=== PATIENT | female | born 1995 | race Two or more races ===

== ENCOUNTER 2017-10-12 12:37 | Emergency (ER) | payer BC ==
--- NOTE | 2017-10-12 13:00 | Emergency Department Record ---
History of Present Illness - General Chief complaint: Eye Problem Stated complaint: LT EYE IRRATATION Time Seen by Provider: 10/12/17 12:46 Source: Patient Mode of Arrival: Ambulatory Limitations: No limitations - History of Present Illness Initial comments: The patient is here due to a one day hx of L eye irritation. She denies any eye pain or visual changes and does not wear contacts. She also has not had any cough, cold or nasal drainage. The L eye has had some colored drainage in the morning and a little eyelid swelling which is improved now. chief complaint: Eye redness Onset/Timin -: Days(s) Onset Description: Gradual Location: Left eye Eye Symptoms: Redness Treatments Prior to Arrival: OTC eye drops - Related Data Visual acuity (L) = 20/: 70 Visual acuity (R) = 20/: 70 Home Medications Medication Instructions Recorded Confirmed Last Taken No122/Iron/Folic Acid 1 each PO DAILY 10/12/17 10/12/17 10/11/17 [ Multi Tablet] Previous Rx's Medication Instructions Recorded Erythromycin Base [Erythromycin 1 apply AFFEYE QID #1 tube 10/12/17 OPTH Ointment] Allergies Allergy/AdvReac Type Severity Reaction Status Date / Time No Known Drug Allergies Allergy Verified 10/12/17 12:49 Travel Screening - Travel/Exposure Within Last 30 Days Have you traveled within the last 30 days?: No - Travel/Exposure Within Last Year Have you traveled outside the [place] in the last year?: No - Additonal Travel Details Have you been exposed to anyone with a communicable illness?: No - Travel Symptoms Symptom Screening: None Review of Systems Constitutional: Denies: Chills, Fever Eyes: Reports: Eye discharge. Denies: Eye pain, Photophobia, Vision change Past Medical History - SOCIAL HISTORY Smoking Status: Never smoker Alcohol Use: None Drug Use: None - RESPIRATORY Hx Respiratory Disorders: No - CARDIOVASCULAR Hx Cardio Disorders: No - NEURO Hx Neuro Disorders: No - GI Hx GI Disorders: No - Hx Genitourinary Disorders: No - ENDOCRINE Hx Endocrine Disorders: No - MUSCULOSKELETAL Hx Musculoskeletal Disorders: No - PSYCH Hx Psych Problems: No - HEMATOLOGY/ONCOLOGY Hx Hematology/Oncology Disorders: No Family Medical History Any Significant Family History?: No Hx Diabetes: Father, Grandparents Hx Kidney Disease: Grandparents Physical Exam - General General Appearance: Alert, Oriented x3, Cooperative, No acute distress - Head Head exam: Atraumatic, Normocephalic, Normal inspection - Eye Eye exam: PERRL, Conjunctival injection (The L eye is 1+ injected and the cornea is clear with No flourescein uptake.), EOMI. negative: Normal appearance - ENT ENT exam: Normal exam, Mucous membranes moist, Normal external ear exam, Normal orophraynx, TM's normal bilaterally Throat exam: Normal inspection. negative: Tonsillar erythema, Tonsillar exudate - Neck Neck exam: Normal inspection, Full ROM. negative: Tenderness Course Vital Signs 10/12/17 12:39 Temperature 97.7 F Pulse Rate 93 H Respiratory 16 Rate Blood Pressure 114/78 Pulse Ox 97 - Reevaluation(s) Reevaluation #1: I did explain to the patient it appears she has a conjunctivitis in the L eye. She is to use the eye ointment as directed and see her eye doctor in 3 days as planned. 10/12/17 13:02 Disposition Disposition: Discharge Clinical Impression: Conjunctivitis Qualifiers: Conjunctivitis type: unspecified Laterality: left Qualified Code(s): H10.9 - Unspecified conjunctivitis Disposition: Home, Self-Care Condition: (2) Stable Instructions: Conjunctivitis (ED) Additional Instructions: Please continue to use the warm compresses to the L eye until better. Use the Emycin Opthalmic ointment as directed. Please keep the appointment with your eye doctor for later this week. Return to the ER for any worsening symptoms, any pain or visual changes. Prescriptions: Erythromycin Base [Erythromycin OPTH Ointment] 1 apply JOSE MANRIQUEZ #1 tube Forms: Patient Portal Access Time of Disposition: 13:00 Quality - Quality Measures Quality Measures: N/A - Blood Pressure Screening View Details: Yes Does Patient Have Any of the Following: No Blood Pressure Classification: Normal BP Reading Systolic Measurement: 114 Diastolic Measurement: 78 Screening for High Blood Pressure: < Normal BP, F/U Not Required > [G8783]
== END 2017-10-12 13:07 | disposition home or self-care (01) ==
LOC: ER 12:37
DX: H10.32 Unspecified acute conjunctivitis, left eye (principal)
CPT/HCPCS: 99282

== ENCOUNTER 2018-10-06 13:46 | Emergency (ER) | payer BC, MEDICAID ==
[2018-10-06] MEDS ORDERED: ACETAMINOPHEN 325 MG TAB PO ONE (14:02)
--- NOTE | 2018-10-06 14:04 | Emergency Department Record ---
History of Present Illness - General Chief Complaint: Fall Injury Stated Complaint: FALL INJURY,ANKLE Time Seen by Provider: 10/06/18 13:53 Source: Patient Mode of Arrival: Wheelchair Limitations: No limitations - History of Present Illness Initial Comments: The patient is here due to R ankle pain for 7 hours. She slipped on the ice this AM and twisted her R ankle. The patient states she has been unable to walk on it since. She denies any other injury. MD Complaint: Other Onset/Timin -: Hour(s) Fall From: Other When Fall Occurred: 4-6 hours [employer] Fall Witnessed: No Place Fall Occurred: Home Loss of Consciousness: None Prolonged Down Time?: No Symptoms Prior to Fall: None Severity: Moderate Severity scale (1-10): 8 Quality: Sharp Context: Tripped/slipped Associated Symptoms: Denies - Related Data Home Medications Medication Instructions Recorded Confirmed Last Taken No Home Med [NO HOME MEDS] 10/06/18 10/06/18 Unknown Allergies Allergy/AdvReac Type Severity Reaction Status Date / Time No Known Drug Allergies Allergy Verified 10/12/17 12:49 Travel Screening - Travel/Exposure Within Last 30 Days Have you traveled within the last 30 days?: No Review of Systems Constitutional: Denies: Chills, Fever Eyes: Denies: Eye discharge ENT: Denies: Congestion Respiratory: Denies: Cough, Dyspnea Past Medical History - SOCIAL HISTORY Smoking Status: Never smoker - RESPIRATORY Hx Respiratory Disorders: No - CARDIOVASCULAR Hx Cardio Disorders: No - NEURO Hx Neuro Disorders: No - GI Hx GI Disorders: No - Hx Genitourinary Disorders: No - ENDOCRINE Hx Endocrine Disorders: No - MUSCULOSKELETAL Hx Musculoskeletal Disorders: No - PSYCH Hx Psych Problems: No - HEMATOLOGY/ONCOLOGY Hx Hematology/Oncology Disorders: No Family Medical History Any Significant Family History?: Yes Hx Diabetes: Father, Grandparents Hx Kidney Disease: Grandparents Physical Exam - General General Appearance: Alert, Cooperative, No acute distress - Extremities Extremities exam: Normal capillary refill, Tenderness (At the distal fibula.), Other (The R foot is NVI.). negative: Normal inspection (There is mild to moderate swelling at the distal R fibula at the ankle with tenderness.), Calf tenderness, Full ROM, Joint swelling, Pedal edema Course Vital Signs 10/06/18 13:50 Temperature 98.8 F Pulse Rate 93 H Respiratory 20 Rate Blood Pressure 138/84 Pulse Ox 99 - Reevaluation(s) Reevaluation #1: I did discuss the xray results with the patient and the need for further evaluation with an ORthopedic doctor. 10/06/18 14:30 Medical Decision Making - Data Complexity MDM Data: X-Ray Ordered and/or Reviewed - Radiology Data Radiology results: Report reviewed (R ankle: Min displaced oblique distal fibula fx.) Disposition Disposition: Discharge Clinical Impression: Fracture, fibula Qualifiers: Encounter type: initial encounter Fibula location: distal Fracture type: closed Fracture morphology: unspecified fracture morphology Laterality: right Qualified Code(s): S82.831A - Other fracture of upper and lower end of right fibula, initial encounter for closed fracture Disposition: Home, Self-Care Condition: (2) Stable Instructions: Ankle Fracture (ED) Additional Instructions: Please take Tylenol or Motrin for pain and please see Dr. Rawls in the Specialty clinic tomorrow. Ice and elevate the ankle for 2 days and use crutches for walking. Return to the ER for any problems. Referrals: [facility] [Provider Group] JEFF RAWLS [DOCTOR OF OSTEOPATH] - Forms: Patient Portal Access Time of Disposition: 14:40 Quality - Quality Measures Quality Measures: N/A - Blood Pressure Screening View Details: Yes Does Patient Have Any of the Following: No Blood Pressure Classification: Pre-Hypertensive BP Reading Systolic Measurement: 138 Diastolic Measurement: 84 Screening for High Blood Pressure: < Pre-Hypertensive BP, F/U Documented > [ G8950] Pre-Hypertensive Follow-up Interventions: Referral to alternative/primary care provider.
--- NOTE | 2018-10-09 21:08 | RADIOLOGY REPORT ---
EXAM: ANKLE RIGHT 3 VIEWS HISTORY: LATERAL ANKLE PAIN POST FALL TODAY. TECHNIQUE: Three views of the right ankle. COMPARISON: None. ENCOUNTER: Initial. FINDINGS: There is normal bone mineralization. There is an oblique fracture of the distal fibula. The medial cortical disruption is at the level of the lateral corner of the ankle mortise. There is minimal lateral displacement of the distal fracture fragment. The ankle mortise is, however, relatively symmetric. No other fracture is seen, nor is there dislocation. There is moderate lateral soft tissue swelling. IMPRESSION: OBLIQUE DISTAL FIBULAR FRACTURE WITH THE MEDIAL CORTICAL DISRUPTION AT THE LEVEL OF THE LATERAL CORNER OF THE ANKLE MORTISE AND MINIMAL LATERAL DISPLACEMENT OF THE DISTAL FRACTURE FRAGMENT. MODERATE LATERAL SOFT TISSUE SWELLING. JOB NUMBER: [id number] [facility]
== END 2018-10-06 15:16 | disposition home or self-care (01) ==
LOC: ER 13:46
DX: S82.431A Displaced oblique fracture of shaft of right fibula, initial encounter for closed fracture (principal); W00.0XXA Fall on same level due to ice and snow, initial encounter; Y92.009 Unspecified place in unspecified non-institutional (private) residence as the place of occurrence of the external cause
CPT/HCPCS: 99283